=== PATIENT | female | born 1960 | race Caucasian/White ===

== ENCOUNTER 2018-07-03 08:30 | Emergency (ER) | payer OTHER ==
[~2018-07-03] VITALS: Ht 162.6 cm; Wt 70.3 kg
[2018-07-03] MEDS ORDERED: ZADITOR5 ML BOTHEYES (10:27)
== END 2018-07-03 10:36 | disposition home or self-care (01) ==
LOC: ER 08:30
DX: T49.8X1A Poisoning by other topical agents, accidental (unintentional), initial encounter (principal); L25.0 Unspecified contact dermatitis due to cosmetics; H10.10 Acute atopic conjunctivitis, unspecified eye; F17.200 Nicotine dependence, unspecified, uncomplicated
CPT/HCPCS: 99282

== ENCOUNTER 2018-09-27 10:02 | Emergency (ER) | payer OTHER ==
[~2018-09-27] VITALS: Ht 165.1 cm; Wt 70.3 kg
[~2018-09-27 10:02] MED LIST: ZADITOR5 ML BOTHEYES
[2018-09-27] MEDS ORDERED: Percocet 5-3251 EACH PO (13:05)
== END 2018-09-27 13:20 | disposition home or self-care (01) ==
LOC: ER 10:02
DX: S42.351A Displaced comminuted fracture of shaft of humerus, right arm, initial encounter for closed fracture (principal); S42.211A Unspecified displaced fracture of surgical neck of right humerus, initial encounter for closed fracture; F17.210 Nicotine dependence, cigarettes, uncomplicated; W01.0XXA Fall on same level from slipping, tripping and stumbling without subsequent striking against object, initial encounter
CPT/HCPCS: 73030; 99283-25; A9270-GY

== ENCOUNTER 2018-10-04 08:12 | Day surgery (SDC) | payer OTHER ==
[~2018-10-04] VITALS: Ht 160 cm; Wt 144.4 kg
[~2018-10-04 08:12] MED LIST changes: +Percocet 5-3251 EACH PO
[2018-10-04] MEDS ORDERED: Loratadine10 MG PO (09:00)
--- NOTE | 2018-10-04 10:19 | NUR ---
10/04/18 1019 Petra Belcher EXTENSIVE BRUISING NOTED ON RIGHT SHOULDER AND UPPER ARM. SKIN INTACT.
--- NOTE | 2018-10-04 13:04 | NUR ---
10/04/18 1304 Chase Hopkins GAVE REPORT TO WES BARNETT AND SHE TOOK OVER PATIENT CARE.
== END 2018-10-04 13:20 | disposition home or self-care (01) ==
LOC: ORSCSDS 08:12
PROVIDERS: Orthopaedic Surgery
PROC: 0PSC04Z Reposition Right Humeral Head with Internal Fixation Device, Open Approach (ICD-10-PCS; principal; 2018-10-04 09:45)
DX: S42.211A Unspecified displaced fracture of surgical neck of right humerus, initial encounter for closed fracture (principal); F17.210 Nicotine dependence, cigarettes, uncomplicated
CPT/HCPCS: A9270-GY; C1713; J0690; J1100; J2250; J2370; J2405; J2704; J2710; J2795; J3010; J7120